=== PATIENT | female | born 1995 | race African-American/Black ===

== ENCOUNTER 2024-04-16 15:36 | Emergency (ER) | payer OTHER ==
[~2024-04-16] VITALS: Ht 162.6 cm; Wt 95.5 kg
[2024-04-16 15:48] VITALS: TEMP 98.2
[2024-04-16] MEDS ORDERED: DOXYCYCLINE 10100 MG PO (16:19)
[2024-04-16 16:30] VITALS: BP 115/72; PULSE 86
[2024-04-16] MEDS ORDERED: Doxycycline Monohydrate 100 MG CAP PO ONE (16:30)
== END 2024-04-16 16:31 | disposition home or self-care (01) ==
LOC: COL.ER 15:36
DX: L02.415 Cutaneous abscess of right lower limb (principal); Z88.0 Allergy status to penicillin